=== PATIENT | male | born 1995 | race Caucasian/White ===

== ENCOUNTER 2020-02-08 16:41 | Emergency (ER) | payer SELFPAY ==
[~2020-02-08] VITALS: Ht 180.3 cm; Wt 90.7 kg
[2020-02-08 16:53] VITALS: BP 153/93
== END 2020-02-08 17:38 | disposition home or self-care (01) ==
LOC: ER 16:41
DX: J20.9 Acute bronchitis, unspecified (principal); F17.210 Nicotine dependence, cigarettes, uncomplicated